=== PATIENT | male | born 1935 | race Caucasian/White ===

== ENCOUNTER 2017-09-27 17:15 | Emergency (ER) | payer MEDICARE, OTHER ==
[~2017-09-27] VITALS: Ht 172.7 cm; Wt 73.5 kg
[~2017-09-27 17:15] MED LIST: LEVO88TA21 PO; SIMV20 PO
[2017-09-27 17:38] VITALS: BP 184/79; PULSE 73; RESP 16; TEMP 98.2; O2SAT 98
[2017-09-27] MEDS ORDERED: LEVO88TA2 PO (17:50)
[2017-09-27] MEDS ORDERED: SIMV20TA PO (17:50)
--- NOTE | 2017-09-27 18:11 | PD ---
HPI Chief Complaint: Hypertension Time Seen by Provider: 17:52 Travel History International Travel<30 days: No Contact w/Intl Traveler<30days: No Traveled to known affect area: No History of Present Illness HPI Patient is an 82-year-old male with a history of CABG presents the emergency department for evaluation of elevated blood pressure. Patient states his blood pressure was as high as 220 systolic prior to arrival. He went to an urgent care facility where he was given an unknown medication to help with his blood pressure and then sent to the emergency department. Patient states he took his blood pressure because his "lady friend" take her blood pressure and decided to take his yesterday. His blood pressure was elevated at that time remaining elevated today they decided to seek emergent care at the urgent care and then referred here. The patient again has no complaints. He has no chest pain or shortness of breath no abdominal pain no nausea vomiting no headache no blurred vision no focalized weakness no difficulty urinating. He has been on blood pressure medication in the past but does not recall the medication. He states he self stopped it 2 years ago PFSH Past Medical History Hx Anticoagulant Therapy: Yes (asa 81mg) Blood Disorders: No Cancer: No Cardiovascular Problems: Yes (hx of htn not on meds, hx of 4 vessel bypass, [place]) High Cholesterol: Yes Chemotherapy: No Chest Pain: Yes Diabetes: No Patient Takes Glucophage: No Diminished Hearing: No Endocrine: Yes Gastrointestinal Disorders: No Genitourinary: Yes Immune Disorder: No Kidney Stones: Yes (40 YEARS AGO) Musculoskeletal: No Neurologic: No Psychiatric: No Reproductive: No Respiratory: No Radiation Therapy: No Thyroid Disease: Yes (HYPO THYROID) Tetanus Vaccination: Unknown Past Surgical History Abdominal Surgery: Yes ( HERNIA REPAIR, KIDNEY STONES) AICD: No Arteriovenous Shunt: No Coronary Artery Bypass Graft: Yes (QUAD) Eye Surgery: Yes (BILAT. CATATACTS REMOVED) Genitourinary Surgery: Yes (VASECTOMY) Insulin Pump: No Joint Replacement: No Pacemaker: No Tonsillectomy: Yes Social History Alcohol Use: Yes (RARE) Tobacco Use: No Substance Use: No Allergies-Medications (Allergen,Severity, Reaction): Coded Allergies: No Known Allergies (Verified Allergy, Severe, 09/27/17) Reported Meds & Prescriptions Reported Meds & Active Scripts Active Reported Simvastatin 20 Mg Tab 20 Mg PO DAILY Levothyroxine (Levothyroxine Sodium) 88 Mcg Tab 88 Mcg PO DAILY Review of Systems Except as stated in HPI: all other systems reviewed are Neg Physical Exam Narrative GENERAL: Well-developed well-nourished, no obvious distress. SKIN: Focused skin assessment warm/dry. HEAD: Atraumatic. Normocephalic. EYES: Pupils equal and round. No scleral icterus. No injection or drainage. ENT: No nasal bleeding or discharge. Mucous membranes pink and moist. NECK: Trachea midline. No JVD. CARDIOVASCULAR: Regular rate and rhythm. No murmur appreciated. 2+ bilateral equal pulses in all 4 extremities, RESPIRATORY: No accessory muscle use. Clear to auscultation. Breath sounds equal bilaterally. GASTROINTESTINAL: Abdomen soft, non-tender, nondistended. Hepatic and splenic margins not palpable. MUSCULOSKELETAL: No obvious deformities. No clubbing. No cyanosis. No edema. NEUROLOGICAL: Awake and alert. No obvious cranial nerve deficits. Motor grossly within normal limits. Normal speech. PSYCHIATRIC: Appropriate mood and affect; insight and judgment normal. Data Data Last Documented VS Vital Signs Date Time Temp Pulse Resp B/P (MAP) Pulse Ox O2 Delivery O2 Flow Rate FiO2 09/27/17 18:14 65 16 143/69 (93) 98 09/27/17 17:46 Room Air 09/27/17 17:38 98.2 Orders Orders Ed Discharge Order (09/27/17 18:11) MDM Medical Decision Making Medical Screen Exam Complete: Yes Emergency Medical Condition: Yes Differential Diagnosis Elevated blood pressure, hypertensive emergency has been excluded clinically, essential hypertension, secondary hypertension. Narrative Course Patient room to the emergency department, per [employer] position paper there is no indication for further workup of this patient was asymptomatic and no indication to further lower his blood pressure emergently in fact do so may be dangerous. Still given the patient's age she was offered basic lab work to check for occult organ failure but he declined at this time. I discussed with him need for follow-up with Dr. Liriano and return to ED criteria. He is stable for discharge Diagnosis Primary Impression: Elevated blood pressure reading Additional Instructions: Take your blood pressure twice a day while sitting still and not doing anything for 5 minutes prior to taking her blood pressure. Write down all of these readings and follow-up with Dr. Liriano. Call Dr. Liriano's office first thing tomorrow. If you have any chest pain shortness of breath headache or weakness in an arm or a leg return to the emergency department immediately Disposition: 01 DISCHARGE HOME Condition: Stable Yuval Alarcon MD Sep 27, 2017 18:11
[2017-09-27 18:14] VITALS: BP 143/69
== END 2017-09-27 18:32 | disposition home or self-care (01) ==
LOC: PHED 17:15
DX: R03.0 Elevated blood-pressure reading, without diagnosis of hypertension (principal); E78.00 Pure hypercholesterolemia, unspecified; E03.9 Hypothyroidism, unspecified; Z79.82 Long term (current) use of aspirin; Z95.5 Presence of coronary angioplasty implant and graft
CPT/HCPCS: 99282